=== PATIENT | female | born 1955 | race Caucasian/White ===

== ENCOUNTER 2018-10-22 05:09 | Inpatient (IN) ==
--- NOTE | 2018-10-14 11:05 | EKG Report ---
Test Performed on : 10/14/2018 10:42:38 AM Test Reason : PAT Blood Pressure : / mmHG Vent. Rate : 095 BPM Atrial Rate : 095 BPM P-R Int : 150 ms QRS Dur : 078 ms QT Int : 342 ms P-R-T Axes : 041 -06 033 degrees QTc Int : 429 ms Normal sinus rhythm. with sinus arrhythmia. Possible Left atrial enlargement Inferior infarct (cited on or before 17-JAN-2015) Possible Anterior infarct (cited on or before 17-JAN-2015) Abnormal ECG When compared with ECG of 17-JAN-2015 11:29, No significant change was found Confirmed by Bam HAYNES, All Warner ([id number]) on 10/16/2018 8:45:02 AM
[2018-10-14 11:37] LABS: HEMATOCRIT 44.5 % (37.0-47.0); HEMOGLOBIN 14.9 g/dL (12.0-16.0); MCH 32.4 PG (27-31); MCHC 33.5 g/dL (33-37); MCV 96.7 FL (81-99); MPV 11.9 FL (7.4-10.4); RBC 4.6 XMIL (4.2-5.4); RDW 12.4 % (11.5-14.5); WBC 7.83 X1000 (4.8-10.8)
[2018-10-14 11:45] LABS: PTT 29.2 Seconds (22.3-41.8)
[2018-10-14 12:04] LABS: AGAP 14; BUN 19 mg/dL (8-22); CALCIUM 9.4 mg/dL (8.8-10.2); CHLORIDE 100 mmol/L (98-107); COSMO 286; CREATININE 0.8 mg/dL (0.5-0.9); ESTIMATED GFR > 60; GLUCOSE 245 mg/dL (70-104); POTASSIUM 4.3 mmol/L (3.5-5.1); SODIUM 138 mmol/L (136-145); TCO2 24 mmol/L (25-35)
[2018-10-22] MEDS ORDERED: VALIUM ONE (05:43)
[2018-10-22] MEDS ORDERED: PEPCID ONE (05:43)
[2018-10-22] MEDS ORDERED: LR 1,000 ML ONE ×2 (05:43→06:27)
[2018-10-22] MEDS ORDERED: TRANSDERM-SCOP ONE (05:43)
[2018-10-22] MEDS ORDERED: KEFZOL 1 GM/D5W 2 GM/100 ML IVPB ONE (05:43)
[2018-10-22] MEDS ORDERED: SENSORCAINE-MPF 0.5%/EPI 1:200,000 ONE (06:27)
[2018-10-22] MEDS ORDERED: DIPRIVAN 1% ONE (06:27)
[2018-10-22] MEDS ORDERED: QUELICIN (DOSE) ONE (06:28)
[2018-10-22] MEDS ORDERED: NORCURON ONE (06:28)
[2018-10-22] MEDS ORDERED: SODIUM CHLORIDE 0.9% 10 ML ONE (06:28)
[2018-10-22] MEDS ORDERED: TORADOL ONE (07:14)
[2018-10-22] MEDS ORDERED: ZOFRAN ONE (07:14)
[2018-10-22] MEDS ORDERED: DECADRON ONE (07:14)
[2018-10-22] MEDS ORDERED: LUBRIFRESH PM OPH OINTMENT ONE (07:14)
[2018-10-22] MEDS ORDERED: XYLOCAINE-MPF 2% ONE (07:19)
[2018-10-22] MEDS ORDERED: FENTANYL ONE (07:21)
[2018-10-22] MEDS ORDERED: MARCAINE 0.25% PF ONE (07:28)
[2018-10-22] MEDS ORDERED: APRESOLINE ONE (07:44)
[2018-10-22] MEDS ORDERED: ROBINUL ONE ×2 (07:55→09:03)
[2018-10-22] MEDS ORDERED: NEOSTIGMINE ONE (09:04)
[2018-10-22] MEDS ORDERED: NS 1,000 ML ONE (09:28)
[2018-10-22] MEDS: DILAUDID ONE ×2 (09:34→09:37)
[2018-10-22] MEDS ORDERED: PHENERGAN IV PRN (11:45)
[2018-10-22] MEDS ORDERED: NORCO-10 PO PRN (11:45)
[2018-10-22] MEDS ORDERED: SODIUM CHLORIDE 0.9% INJ PRN (11:45)
[2018-10-22] MEDS ORDERED: HUMULIN R SUBQ SCH (11:45)
[2018-10-22] MEDS ORDERED: PHENERGAN PO PRN (11:45)
[2018-10-22] MEDS: NS 1,000 ML IV SCH (11:45)
[2018-10-22] MEDS ORDERED: NORCO-5 PO PRN (11:45)
[2018-10-22] MEDS ORDERED: OFIRMEV 1000 MG/ISOTONIC SOLN 1,000 MG/100 ML BOTTLE IV PRN (11:45)
[2018-10-22] MEDS ORDERED: LABETALOL IV PRN (11:45)
[2018-10-22] MEDS ORDERED: ZOFRAN IV PRN (11:45)
[2018-10-22] MEDS ORDERED: PHENERGAN PR PRN (11:45)
[2018-10-22] MEDS ORDERED: D50W SYRINGE IV ONE (12:47)
[2018-10-22] MEDS: KEFZOL 2 GM in D5W 50 ML IV SCH ×2 (15:24→23:54)
[2018-10-22] MEDS: DILAUDID IV PRN ×2 (15:45→20:54)
[2018-10-22] MEDS: HUMALOG SUBQ SCH ×2 (15:59→20:54)
[2018-10-22] MEDS: COLACE PO SCH (20:53)
[2018-10-22] MEDS: GLUCOPHAGE XR PO SCH (20:53)
[2018-10-22] MEDS: PERIDEX MT SCH (20:54)
[2018-10-23] MEDS: NORCO-7.5 PO PRN ×2 (02:31→06:45)
[2018-10-23] MEDS: NS 1,000 ML IV SCH (02:32)
[2018-10-23] MEDS: HUMALOG SUBQ SCH (06:45)
[2018-10-23] MEDS: KEFZOL 2 GM in D5W 50 ML IV SCH (06:45)
[2018-10-23 06:49] LABS: HEMATOCRIT 38.2 % (37.0-47.0); HEMOGLOBIN 12.9 g/dL (12.0-16.0); MCHC 33.8 g/dL (33-37); MCV 97.7 FL (81-99); MPV 11.7 FL (7.4-10.4); RBC 3.91 XMIL (4.2-5.4); RDW 12.5 % (11.5-14.5); WBC 10.1 X1000 (4.8-10.8)
[2018-10-23 07:32] LABS: AGAP 12; BUN 16 mg/dL (8-22); CALCIUM 8.6 mg/dL (8.8-10.2); CHLORIDE 103 mmol/L (98-107); COSMO 278; CREATININE 0.9 mg/dL (0.5-0.9); ESTIMATED GFR > 60; GLUCOSE 185 mg/dL (70-104); POTASSIUM 4.3 mmol/L (3.5-5.1); SODIUM 136 mmol/L (136-145); TCO2 21 mmol/L (25-35)
[2018-10-23] MEDS: GLUCOPHAGE XR PO SCH (08:07)
[2018-10-23] MEDS: PERIDEX MT SCH (08:07)
[2018-10-23] MEDS: COLACE PO SCH (08:07)
[2018-10-23] MEDS: DILAUDID IV PRN (10:15)
[2018-10-23 10:50] VITALS: BP 108/68
--- NOTE | 2018-11-25 14:12 | OPERATIVE NOTE ---
PROCEDURE DATE: 10/22/2018 SURGEON: Artie Granda MD PREOPERATIVE DIAGNOSIS: Poorly functioning right kidney, right renal atrophy, right flank pain, hydronephrosis, renal stones. POSTOPERATIVE DIAGNOSIS: Poorly functioning right kidney, right renal atrophy, right flank pain, hydronephrosis, renal stones. PROCEDURE: Right robotic assisted laparoscopic simple nephrectomy. WORKFORCE DEVELOPMENT ASSISTANT: Dr. Will. Please note Dr. Will was present throughout the entire case with exception to the skin closure. INDICATIONS: A 62-year-old female with history of urolithiasis who has developed right flank pain. She underwent abdominal ultrasound, which revealed right hydronephrosis. She underwent CT scan which revealed severe hydronephrosis with right renal cortical thinning, a 10 mm right ureteropelvic junction stone and multiple right renal stones as well as several left renal stones. She continues to have right flank pain, desires right nephrectomy. FINDINGS: There was quite a bit of perirenal inflammation. PROCEDURE IN DETAIL: After obtaining informed consent, patient brought to the operating room. Perioperative antibiotics and general endotracheal anesthesia were administered. She was placed in modified flank position with the right side up. Her upper and lower extremities were padded. A 16-Indian Meredith catheter was introduced and her bladder was drained. 20 mL of Marcaine local anesthetic were used to anesthetize trocar sites as well as the infraumbilical skin with the projected incision to remove the kidney. We began by making a small stab incision with 11 blade in her umbilicus and introduced the Veress needle connected to saline-filled syringe. We confirmed positive drop test, followed by aspiration of fluid in syringe without evidence of blood or GI contents. The pneumoperitoneum pressure was insufflated 50 mmHg. This was followed by demarcating the trocar sites in the standard nephrectomy fashion. After introducing local anesthetic. Bovie electrocautery was used to incise skin and a 12 mm robotic camera trocar was introduced followed by insertion of the camera itself. Her peritoneal cavity was inspected. She did not appear to have adhesions. The rest of the trocars were introduced under direct vision. She was then placed in a more pronounced flank position and the robot was docked. We began by incising the white line of Toldt which allowed us to mobilize the colon medially. Once the colon was reflected duodenal came into the view. Also mobilized medially with Cold dissection. This allowed us to expose the lateral edge of vena cava. She had a very large renal pelvis and perinephric and periureteral inflammation if. I was eventually able to identify the right ureter and there was a clear demarcation of the proximal ureter-ureteropelvic junction with the 10 mm aforementioned stone. The renal vein was dissected with a vessel loop placed around it. The renal artery was directly posterior to the renal vein. Once the renal hilum was isolated we used the endovascular stapler to control the artery with a short load and then the vein with a longer load. Following that, we freed the kidney up laterally posteriorly and superiorly. I went along the renal capsule superiorly in order to preserve her adrenal. The ureter was secured with a hemoclip and transected at mid level. The kidney was at that point, free. We copiously irrigated the surgical field. There was no evidence of bleeding at the hilar level or the adrenal level. There was no obvious injury to the liver. We then undocked the robot. We made a 7 cm infraumbilical incision and extended dissection through the subcutaneous tissues and fascia. The fascia was then incised and I was able to bring the kidney out with assist of my hand. The kidney was opened on the back table and one of the stones were retrieved allowing us to sent off separately for analysis per patient's wishes. The wounds were copiously irrigated. Then a #1 PDS suture was used to close the fascia in a running fashion infraumbilically. 0-Vicryl suture was used in a [id number] fashion to close 12 mm camera trocar. The wounds were irrigated again and 4-0 Monocryl was used for subcuticular closure. This was followed by application of Covidien skin adhesive. Meredith catheter was removed per her request. She was extubated and taken to PACU for further recovery. ESTIMATED BLOOD LOSS: 40 mL. COMPLICATIONS: None. DRAINS: None. SPECIMEN: 1. Right kidney. 2. Right renal stone. DISPOSITION: To PACU, subsequently floor for observation. cc: Artie Granda MD
== END 2018-10-23 10:53 | disposition home or self-care (01) | DRG 661 ==
LOC: OR 05:09 → DIRADM 10:37 → 4N 10:38
PROVIDERS: ADMIT Urology; ATTEND Urology
CPT/HCPCS: 80048; 82360; 82948; 85027; 85610; 85730; 88300; 88307; 93005; 93010; 94761; 94799; A9270; J0330; J0360; J0690; J1100; J1170; J1815; J1885; J2405; J3010; J7030; J7060; J7120; S0020; S2900; XXXXX